=== PATIENT | female | born 1995 | race American Indian/Alaskan Native ===

== ENCOUNTER 2020-10-01 15:39 | Outpatient (CLI) | payer MEDICAID ==
[2020-10-01] MEDS ORDERED: LACTATED RINGERS 500 ML IV ONE (17:00)
[2020-10-01 17:10] LABS: Bacteria,Urine 1+ /HPF (Negative); Bilirubin,Urine NEG (Negative); Blood,Urine SM (Negative); Color,Urine Yellow (Yellow); Protein,Urine <15 mg/dL mg/dL (Negative); Urobilinogen,Urine < 2.0 mg/dL (<2.0)
[2020-10-01] MEDS ORDERED: LACTATED RINGERS 1,000 ML IV SCH (17:30)
[2020-10-01] MEDS ORDERED: ACETAMINOPHEN 500 MG TAB PO ONE (17:53)
[2020-10-01] MEDS ORDERED: LACTATED RINGERS 1,000 ML IV ONE (17:56)
[2020-10-01 18:45] VITALS: BP 132/81
--- NOTE | 2020-10-01 20:22 | Ultrasound Report ---
ULTRASOUND OBSTETRIC LIMITED INDICATION / CLINICAL INFORMATION: placental scan. Clinical Gestational Age (GA): 35.4 weeks.days COMPARISON: None available. FINDINGS: HEART RATE (beats per minute): 148 AMNIOTIC FLUID INDEX (cm) = not measured (normal = 7-24 cm) PRESENTATION: Cephalic. ADDITIONAL FINDINGS: Right lateral placenta without abruption IMPRESSION: 1. No placental abruption Signer Name: Agustín Delaney MD Signed: 10/01/2020 8:17 PM Workstation Name: [email or web address]
== END 2020-10-01 21:27 | disposition home or self-care (01) ==
LOC: TRG 15:39 → APU 15:40 → TRG 21:27
PROVIDERS: ATTEND Obstetrics & Gynecology
DX: O62.9 Abnormality of forces of labor, unspecified (principal); Z3A.35 35 weeks gestation of pregnancy
CPT/HCPCS: 76815; 81001; 87086; 96360; J7120

== ENCOUNTER 2020-10-08 11:22 | Outpatient (CLI) | payer MEDICAID ==
[2020-10-08 12:48] LABS: Hematocrit 34.8 % (30.3-42.9); Hemoglobin 11.7 gm/dl (10.1-14.3); Mean Corpuscular HGB Conc 34 % (30-34); Mean Corpuscular Volume 84 fl (79-97); Red Blood Count 4.13 M/mm3 (3.65-5.03); Red Cell Distribution Width 15.5 % (13.2-15.2)
[2020-10-08 13:11] LABS: Alanine Aminotransferase 13 units/L (7-56); Uric Acid 4.8 mg/dL (3.5-7.6)
[2020-10-08 13:37] LABS: Bacteria,Urine 1+ /HPF (Negative); Bilirubin,Urine NEG (Negative); Blood,Urine NEG (Negative); Color,Urine Yellow (Yellow); Mucus,Urine 1+ /HPF; Urobilinogen,Urine < 2.0 mg/dL (<2.0)
[2020-10-08 14:23] LABS: Platelet Count 212 K/mm3 (140-440)
[2020-10-08 14:37] VITALS: BP 128/72
== END 2020-10-08 15:00 | disposition home or self-care (01) ==
LOC: TRG 11:22 → APU 11:22 → TRG 15:00
PROVIDERS: ATTEND Obstetrics & Gynecology
DX: O13.3 Gestational [pregnancy-induced] hypertension without significant proteinuria, third trimester (principal); Z3A.36 36 weeks gestation of pregnancy
CPT/HCPCS: 36415; 59025; 81001; 82565; 83615; 84450; 84460; 84550; 85027; 87086

== ENCOUNTER 2020-10-15 17:27 | Inpatient (IN) | payer MEDICAID ==
[2020-10-15] MEDS ORDERED: LACTATED RINGERS 1,000 ML IV ONE (18:50)
[2020-10-15 19:37] LABS: Bacteria,Urine 1+ /HPF (Negative); Bilirubin,Urine NEG (Negative); Blood,Urine MOD (Negative); Color,Urine Yellow (Yellow); Mucus,Urine 2+ /HPF
[2020-10-15 19:38] LABS: RBC,Urine > 182.0 /HPF (0.0-6.0)
[2020-10-15 20:19] LABS: Hematocrit 35.8 % (30.3-42.9); Hemoglobin 11.8 gm/dl (10.1-14.3); Mean Corpuscular HGB Conc 33 % (30-34); Mean Corpuscular Volume 85 fl (79-97); Platelet Count 209 K/mm3 (140-440); Red Cell Distribution Width 15.5 % (13.2-15.2)
[2020-10-15 20:39] LABS: Alanine Aminotransferase 15 units/L (7-56); Uric Acid 6.2 mg/dL (3.5-7.6)
[2020-10-15] MEDS ORDERED: ACETAMINOPHEN 325 MG TAB PO ONE (21:16)
[2020-10-15 21:50] LABS: Bilirubin,Urine NEG (Negative); Blood,Urine LG (Negative); Color,Urine Yellow (Yellow); Mucus,Urine 3+ /HPF; Sperm,Urine FEW /HPF (NP)
[2020-10-15 21:51] LABS: RBC,Urine > 182.0 /HPF (0.0-6.0)
[2020-10-15] MEDS ORDERED: OXYTOCIN 10 UNIT/1 ML INJ IM PRN (22:57)
[2020-10-15] MEDS ORDERED: LIDOCAINE (2%) 20 MG/1 ML VIAL 20 ML MDV INFILTRATI ONE (22:57)
[2020-10-15] MEDS ORDERED: TERBUTALINE 1 MG/1 ML INJ SUB-Q PRN (22:57)
[2020-10-15] MEDS ORDERED: ePHEDrine SULFATE 50 MG/1 ML INJ IV PRN (22:57)
[2020-10-15] MEDS ORDERED: MINERAL OIL 30 ML ORAL LIQD PO PRN (22:57)
[2020-10-15] MEDS ORDERED: AMPICILLIN/NS 2 GM/100 ML 2 GM/100 ML BAG IV ONE (22:57)
[2020-10-15] MEDS ORDERED: OXYTOCIN DRIP 30 UNITS/500 ML BAG IV SCH ×2 (23:00)
--- NOTE | 2020-10-15 23:25 | Ultrasound Report ---
ULTRASOUND BIOPHYSICAL PROFILE INDICATION / CLINICAL INFORMATION: Evaluate well being and KAREN COMPARISON: Obstetrical ultrasound, 10/01/2020 FINDINGS: BREATHING MOVEMENT = 2 GROSS BODY MOVEMENT = 2 TONE = 2 QUALITATIVE AMNIOTIC FLUID VOLUME = 2 TOTAL BIOPHYSICAL SCORE = 88 AMNIOTIC FLUID INDEX (cm) = 9.5 PRESENTATION: Cephalic. HEART RATE (beats per minute): 126 IMPRESSION: 1. biophysical profile = 12/07 Signer Name: Uzma Negron MD Signed: 10/15/2020 11:21 PM Workstation Name: [id number]
--- NOTE | 2020-10-15 23:32 | History and Physical Report ---
History of Present Illness Date of examination: 10/15/20 Date of admission: 10/15/2020 Chief complaint: Elevated blood pressure at office History of present illness: 25 year old sent to L&D from office due to elevated blood pressure and headache. Patient reports active movement. Patient reports contractions. She denies LOF or VB. Patient has a 24 hour urine for total protein pending at office. Patient received care at [facility] office and records are available. significant for the following: obesity, elevated blood pressures, pica, UTI, vulvar warts. labs are as follows: B+, antibody screen negative, rubella immune, hepatitis B surface antigen negative, HIV negative, RPR nonreactive, varicella immune, hemoglobin electrophoresis negative, gonorrhea negative, chlamydia negative, trichomonas negative, 1 hour sugar test 103, GBS unknown. Past History Past Medical History: other (obesity) Past Surgical History: no surgical history [facility] History: abnormal PAP smear. denies: chlamydia, gonorrhea, hepatitis B, h epatitis C, herpes, HIV, syphilis, trichomonas Family/Genetic History: diabetes, hypertension Social history: lives with family, full code. denies: smoking, alcohol abuse, prescription drug abuse, IV drug use - Obstetrical History Expected Date of Delivery: 11/01/20 Actual Gestation: 37 Week(s) 4 Day(s) : 1 Para: 0 Hx # Term Pregnancies: 0 Number of Pregnancies: 0 Spontaneous Abortions: 0 Induced : 0 Number of Living Children: 0 Medications and Allergies Allergies Allergy/AdvReac Type Severity Reaction Status Date / Time No Known Allergies Allergy Verified 10/01/20 16:36 Active Meds: Active Medications Ephedrine Sulfate (Ephedrine Sulfate 50 Mg/1 Ml Inj) 10 mg IV Q2M PRN PRN Reason: Hypotension Oxytocin/Sodium Chloride (Pitocin/Ns 30 Unit/500ml) 30 units in 500 mls @ 2 mls/hr IV TITR ANA LUISA; Protocol Lactated Ringer's (Lactated Ringers) 1,000 mls @ 125 mls/hr IV DIRECT ANA LUISA Oxytocin/Sodium Chloride (Pitocin/Ns 30 Unit/500ml) 30 units in 500 mls @ 40 mls/hr IV TITR ANA LUISA; Protocol Ampicillin Sodium (Ampicillin/Ns 2 Gm/100 Ml) 2 gm in 100 mls @ 100 mls/hr IV ONCE ONE; Protocol Stop: 10/15/20 23:56 Ampicillin Sodium (Ampicillin/Ns 1 Gm/50 Ml) 1 gm in 50 mls @ 100 mls/hr IV Q4H ANA LUISA; Protocol Lidocaine (Lidocaine (2%) 20 Mg/1 Ml Vial 20 Ml Mdv) 20 ml INFILTRATI ONCE ONE Stop: 10/15/20 22:58 Mineral Oil (Mineral Oil 30 Ml Oral Liqd) 30 ml PO QHS PRN PRN Reason: Constipation Oxytocin (Oxytocin 10 Unit/1 Ml Inj) 10 unit IM ONCE PRN PRN Reason: Uterine Bleeding Terbutaline Sulfate (Terbutaline 1 Mg/1 Ml Inj) 0.25 mg SUB-Q ONCE PRN PRN Reason: Hyperstimulation/Hypertonicity Review of Systems All systems: negative (contractions, headache) - Vital Signs Vital signs: Vital Signs Pulse BP 88 125/83 10/15/20 18:47 10/15/20 18:47 Temp Pulse Resp BP Pulse Ox 98.6 F 101 H 20 191/92 92 10/15/20 18:51 10/15/20 23:06 10/15/20 18:51 10/15/20 22:50 10/15/20 23:06 - Physical Exam Abdomen: Positive: normal appearance, soft. Negative: distention, tenderness, guarding, rigidity Genitourinary (Female): Positive: normal external genitalia, normal perenium. Negative: perineal/vulvar lesions Vagina: Positive: normal moisture Cervix: Negative: lesion Uterus: Positive: enlarged. Negative: tender Anus/Rectum: Positive: normal perianal skin Extremities: Negative: normal, tenderness, edema (hand edema only) - Obstetrical FHR: category 1 Uterine Contraction Monitor Mode: External Cervical Dilatation: 0.5 Cervical Effacement Percentage: 50 station: -2 Uterine Contraction Pattern: Irregular Uterine Tone Measurement Phase: Resting Uterine Contraction Intensity: Moderate Results Result Diagrams: 10/15/20 20:05 10/15/20 20:05 Abnormal lab results 10/15/20 10/15/20 10/15/20 Range/Units 19:05 20:05 20:05 RDW 15.5 H (13.2-15.2) % Lactate Dehydrogenase 184 H (91-180) units/L Urine WBC (Auto) 16.0 H (0.0-6.0) /HPF 10/15/20 Range/Units 21:40 RDW (13.2-15.2) % Lactate Dehydrogenase (91-180) units/L Urine WBC (Auto) 14.0 H (0.0-6.0) /HPF All other labs normal. Assessment and Plan A: at 37 weeks, 4 days gestation. Preeclampsia. GBS unknown. Early labor. P: Admit. Continuous EFM. GBS prophylaxis in active labor. Consulted with Dr. Raman re: this patient. Dr. Raman agrees to admit and induce labor due to preeclampsia.
[2020-10-16 00:16] LABS: Creatinine,Urine 321.4 mg/dL (0.1-20.0); Protein/Creatinine Ratio,Urine 0.23
[2020-10-16] MEDS: LACTATED RINGERS 1,000 ML IV SCH (01:55)
[2020-10-16] MEDS ORDERED: AMPICILLIN/NS 1 GM/50 ML 1 GM/50 ML BAG IV SCH (04:00)
[2020-10-16] MEDS: ACETAMINOPHEN 500 MG TAB PO PRN ×2 (06:17→15:19)
[2020-10-16] MEDS ORDERED: MAGNESIUM SULFATE 4 GM/100 ML BAG IV ONE (08:30)
--- NOTE | 2020-10-16 08:42 | Event Note ---
Date: 10/16/20 mild elevated BP's no BP's in severe range no neurologic symptoms PIH labs stable 24 hour urine pending plan for d/c oxytocin and complete 24 hour urine monitoring to establish diagnosis prior to active IOL at 37 weeks. Luis Wang MD
[2020-10-16] MEDS ORDERED: fentaNYL 100 MCG/2 ML INJ IV NR (08:48)
[2020-10-16] MEDS ORDERED: MAGNESIUM SULFATE 40GM/1000ML 40 GM/1,000 ML BAG IV SCH (09:00)
--- NOTE | 2020-10-17 02:19 | Event Note ---
Date: 10/17/20 Pt sleeping. Earlier she denied c/o of modi, visual problems, or epigastric pain. Laible b/ps. PIH labs wnl with 25 hr urine pro @ 75. FHT 142 with mod tushar Pos acels neg decels. Pitocin infusing @ 2mu. Occ mild uc noted. Will continue monitoring.
[2020-10-17] MEDS: LACTATED RINGERS 1,000 ML IV SCH ×2 (03:04→11:07)
[2020-10-17] MEDS ORDERED: ALBUTEROL 2.5 MG/3 ML NEBU IH PRN (10:14)
[2020-10-17] MEDS ORDERED: ONDANSETRON 4 MG/2 ML INJ IV PRN (10:57)
--- NOTE | 2020-10-17 11:22 | Event Note ---
Date: 10/17/20 Assumed care of patient at 10:30 AM. SVE /3. Consulted with Dr. Wang re: this patient and decision made to order cytotec to help ripen cervix. Discussed plan of care with patient and patient is in agreement with this plan of care. Discussed this plan with patient's nurse. Pitocin to be discontinued.
[2020-10-17] MEDS: fentaNYL 100 MCG/2 ML INJ IV PRN ×2 (11:41→18:37)
[2020-10-17] MEDS ORDERED: miSOPROStol 25 MCG TAB VG SCH (12:00)
[2020-10-17] MEDS ORDERED: MAGNESIUM SULFATE 4 GM/100 ML BAG IV ONE (16:35)
[2020-10-17] MEDS ORDERED: hydrALAZINE 20 MG/1 ML INJ IV PRN (16:37)
--- NOTE | 2020-10-17 16:41 | Event Note ---
Date: 10/17/20 Magnesium sulfate ordered; discussed POC with patient and patient's nurse.
[2020-10-17] MEDS ORDERED: MAGNESIUM SULFATE 40GM/1000ML 40 GM/1,000 ML BAG IV SCH (17:00)
[2020-10-17] MEDS ORDERED: NALOXONE 2 MG/2 ML INJ IV PRN (20:45)
[2020-10-17] MEDS ORDERED: ePHEDrine SULFATE 50 MG/1 ML INJ IV PRN (20:45)
--- NOTE | 2020-10-17 21:27 | Anesthesia Consultation ---
Anesthesia Consult and Med Hx Date of service: 10/17/20 - Airway Anesthetic Teeth Evaluation: Poor ROM Head & Neck: Adequate Mental/Hyoid Distance: Adequate Mallampati Class: Class III Intubation Access Assessment: Possibly Difficult - Pulmonary Exam CTA: Yes - Cardiac Exam Cardiac Exam: RRR - Pre-Operative Health Status ASA Pre-Surgery Classification: ASA3 Proposed Anesthetic Plan: Epidural - Pulmonary Hx Smoking: No Hx Asthma: No Hx Respiratory Symptoms: No SOB: No COPD: No Home Oxygen Therapy: No Hx Pneumonia: No Hx Sleep Apnea: No - Cardiovascular System Hx Hypertension: No Hx Coronary Artery Disease: No Hx Heart Attack/AMI: No Hx Angina: No Hx Percutaneous Transluminal Coronary Angioplasty (PTCA): No Hx Cardia Arrhythmia: No Hx Pacemaker: No Hx Internal Defibrillator: No Hx Valvular Heart Disease: No Hx Heart Murmur: No - Central Nervous System Hx Neuromuscular Disorder: No Hx Seizures: No CVA: No Hx Back Pain: No Hx Psychiatric Problems: No - Gastrointestinal Hx Ulcer: No Hx Gastroesophageal Reflux Disease: Yes - Endocrine 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
--- NOTE | 2020-10-17 21:34 | Progress Note ---
Labor Epidural - Labor Epidural Start Time: 21:00 Stop Time: 21:15 Performed by:: BLAISE MANCERA Procedure: Patient is requesting a laboring epidural for laboring pain. Patient IDed, H&P reviewed, all questions and concerns were answered, and consent was signed. Timeout was performed at bedside. Patient in sitting position. Sterile prep and drape was performed. [3] ml of 1% lidocaine skin wheal at L[3]- L [4]. 18- gauge Tuohy epidural needle was advanced to loss of resistance with air technique to 7cm. Negative CSF negative blood via Tuohy needle. #27g Spinal needle clear, free flowing CSF, Pecedex 10 mcg. Epidural catheter advanced to [10] centimeters. [negative] Aspiration [negative] test dose. Sterile dressing applied. Patient tolerated procedure.
[2020-10-17] MEDS: fentaNYL-BUPIV 2 MCG/ML-0.125% 200 MCG/100 ML BAG EPIDURAL SCH (22:11)
[2020-10-18] MEDS: fentaNYL-BUPIV 2 MCG/ML-0.125% 200 MCG/100 ML BAG EPIDURAL SCH (06:14)
[2020-10-18] MEDS ORDERED: FAMOTIDINE 20 MG/2 ML INJ IV SCH (08:00)
[2020-10-18] MEDS ORDERED: BICITRA ORAL LIQD 30ML PO SCH (08:00)
[2020-10-18] MEDS ORDERED: LACTATED RINGERS 1,000 ML IV SCH (08:00)
[2020-10-18] MEDS ORDERED: METOCLOPRAMIDE 10 MG/2 ML INJ IV SCH (08:00)
[2020-10-18] MEDS ORDERED: ceFAZolin/Water 2 GM/20 ML 2 GM/20 ML SYRINGE IV NR (08:00)
--- NOTE | 2020-10-18 08:00 | Progress Note ---
Subjective - Subjective Date of service: 10/18/20 Interval history: no cervical change +ve caput station-3 plan for operative delivery Informed consent Catefory 1 tracing Luis Wang MD Objective - Vital Signs Vital Signs: Vital Signs - 12hr 10/17/20 10/17/20 10/17/20 20:00 20:14 20:15 Temperature 98.7 F Pulse Rate 113 H 103 H Respiratory 20 20 Rate Blood Pressure 158/85 173/82 O2 Sat by Pulse Oximetry 10/17/20 10/17/20 10/17/20 20:31 20:34 20:50 Temperature Pulse Rate 111 H 103 H 129 H Respiratory Rate Blood Pressure 184/119 155/91 O2 Sat by Pulse 100 Oximetry 10/17/20 10/17/20 10/17/20 20:55 20:56 21:00 Temperature Pulse Rate 108 H 113 H 116 H Respiratory 20 Rate Blood Pressure 146/80 O2 Sat by Pulse 99 98 Oximetry 10/17/20 10/17/20 10/17/20 21:05 21:09 21:10 Temperature Pulse Rate 113 H 101 H 111 H Respiratory Rate Blood Pressure 150/87 O2 Sat by Pulse 97 98 Oximetry 10/17/20 10/17/20 10/17/20 21:15 21:16 21:19 Temperature Pulse Rate 90 115 H 118 H Respiratory Rate Blood Pressure 155/84 183/115 O2 Sat by Pulse 97 Oximetry 10/17/20 10/17/20 10/17/20 21:20 21:21 21:24 Temperature Pulse Rate 104 H 100 H 99 H Respiratory Rate Blood Pressure 157/88 155/91 138/88 O2 Sat by Pulse 97 Oximetry 10/17/20 10/17/20 10/17/20 21:26 21:28 21:31 Temperature Pulse Rate 100 H 90 94 H Respiratory Rate Blood Pressure 128/63 130/68 O2 Sat by Pulse 97 97 Oximetry 10/17/20 10/17/20 10/17/20 21:33 21:36 21:39 Temperature Pulse Rate 83 82 85 Respiratory Rate Blood Pressure 123/68 125/67 124/71 O2 Sat by Pulse 99 Oximetry 10/17/20 10/17/20 10/17/20 21:41 21:42 21:45 Temperature Pulse Rate 87 90 82 Respiratory Rate Blood Pressure 129/68 132/65 O2 Sat by Pulse 99 Oximetry 10/17/20 10/17/20 10/17/20 21:46 21:48 21:51 Temperature Pulse Rate 79 91 H 96 H Respiratory Rate Blood Pressure 132/70 132/68 O2 Sat by Pulse 98 96 Oximetry 10/17/20 10/17/20 10/17/20 21:54 21:56 21:57 Temperature Pulse Rate 86 82 93 H Respiratory Rate Blood Pressure 122/64 119/61 O2 Sat by Pulse 97 Oximetry 10/17/20 10/17/20 10/17/20 22:00 22:01 22:03 Temperature Pulse Rate 91 H 93 H 85 Respiratory 20 Rate Blood Pressure 126/68 128/72 O2 Sat by Pulse 99 Oximetry 10/17/20 10/17/20 10/17/20 22:06 22:09 22:11 Temperature Pulse Rate 91 H 83 94 H Respiratory Rate Blood Pressure 127/62 118/62 O2 Sat by Pulse 98 98 Oximetry 10/17/20 10/17/20 10/17/20 22:12 22:15 22:16 Temperature Pulse Rate 85 92 H 89 Respiratory Rate Blood Pressure 126/72 119/62 O2 Sat by Pulse 98 Oximetry 10/17/20 10/17/20 10/17/20 22:18 22:21 22:24 Temperature Pulse Rate 85 85 85 Respiratory Rate Blood Pressure 120/66 122/70 118/69 O2 Sat by Pulse 99 Oximetry 10/17/20 10/17/20 10/17/20 22:26 22:27 22:30 Temperature Pulse Rate 86 85 81 Respiratory Rate Blood Pressure 117/63 116/67 O2 Sat by Pulse 98 Oximetry 10/17/20 10/17/20 10/17/20 22:31 22:33 22:36 Temperature Pulse Rate 84 85 85 Respiratory Rate Blood Pressure 114/61 125/64 O2 Sat by Pulse 97 97 Oximetry 10/17/20 10/17/20 10/17/20 22:39 22:41 22:42 Temperature Pulse Rate 86 83 90 Respiratory Rate Blood Pressure 116/58 104/56 O2 Sat by Pulse 99 Oximetry 10/17/20 10/17/20 10/17/20 22:46 22:47 22:51 Temperature Pulse Rate 81 83 85 Respiratory Rate Blood Pressure O2 Sat by Pulse 96 94 95 Oximetry 10/17/20 10/17/20 10/17/20 22:56 23:00 23:01 Temperature Pulse Rate 82 81 Respiratory 20 Rate Blood Pressure O2 Sat by Pulse 96 97 Oximetry 10/17/20 10/17/20 10/17/20 23:03 23:06 23:11 Temperature Pulse Rate 78 77 82 Respiratory Rate Blood Pressure O2 Sat by Pulse 94 97 96 Oximetry 10/17/20 10/17/20 10/17/20 23:14 23:15 23:16 Temperature Pulse Rate 76 82 81 Respiratory Rate Blood Pressure 103/58 O2 Sat by Pulse 94 94 Oximetry 10/17/20 10/17/20 10/17/20 23:21 23:24 23:26 Temperature Pulse Rate 101 H 81 77 Respiratory Rate Blood Pressure O2 Sat by Pulse 98 94 96 Oximetry 10/17/20 10/17/20 10/17/20 23:31 23:35 23:36 Temperature Pulse Rate 77 80 74 Respiratory Rate Blood Pressure O2 Sat by Pulse 96 94 95 Oximetry 10/17/20 10/17/20 10/17/20 23:41 23:46 23:51 Temperature Pulse Rate 79 77 77 Respiratory Rate Blood Pressure 104/53 O2 Sat by Pulse 95 93 96 Oximetry 10/17/20 10/17/20 10/17/20 23:53 23:56 23:58 Temperature Pulse Rate 86 80 77 Respiratory Rate Blood Pressure O2 Sat by Pulse 93 96 94 Oximetry 10/18/20 10/18/20 10/18/20 00:00 00:01 00:06 Temperature Pulse Rate 73 73 Respiratory 20 Rate Blood Pressure O2 Sat by Pulse 97 97 Oximetry 10/18/20 10/18/20 10/18/20 00:09 00:11 00:14 Temperature Pulse Rate 78 75 85 Respiratory Rate Blood Pressure 117/59 O2 Sat by Pulse 94 95 Oximetry 10/18/20 10/18/20 10/18/20 00:16 00:21 00:26 Temperature Pulse Rate 83 77 80 Respiratory Rate Blood Pressure O2 Sat by Pulse 99 97 99 Oximetry 10/18/20 10/18/20 10/18/20 00:31 00:36 00:41 Temperature Pulse Rate 73 75 79 Respiratory Rate Blood Pressure O2 Sat by Pulse 98 97 100 Oximetry 10/18/20 10/18/20 10/18/20 00:45 00:46 00:51 Temperature Pulse Rate 85 80 79 Respiratory Rate Blood Pressure 112/65 O2 Sat by Pulse 98 99 Oximetry 10/18/20 10/18/20 10/18/20 00:56 00:59 01:00 Temperature Pulse Rate 83 77 Respiratory 20 Rate Blood Pressure O2 Sat by Pulse 96 93 Oximetry 10/18/20 10/18/20 10/18/20 01:01 01:06 01:11 Temperature Pulse Rate 96 H 74 80 Respiratory Rate Blood Pressure O2 Sat by Pulse 94 97 95 Oximetry 10/18/20 10/18/20 10/18/20 01:14 01:16 01:17 Temperature Pulse Rate 93 H 75 75 Respiratory Rate Blood Pressure 113/59 O2 Sat by Pulse 88 96 Oximetry 10/18/20 10/18/20 10/18/20 01:22 01:27 01:31 Temperature Pulse Rate 78 80 82 Respiratory Rate Blood Pressure O2 Sat by Pulse 96 98 94 Oximetry 10/18/20 10/18/20 10/18/20 01:32 01:37 01:38 Temperature Pulse Rate 79 92 H 93 H Respiratory Rate Blood Pressure O2 Sat by Pulse 97 98 91 Oximetry 10/18/20 10/18/20 10/18/20 01:42 01:45 01:47 Temperature Pulse Rate 100 H 97 H 94 H Respiratory Rate Blood Pressure 125/60 O2 Sat by Pulse 99 100 Oximetry 10/18/20 10/18/20 10/18/20 01:52 01:57 02:00 Temperature Pulse Rate 113 H 96 H Respiratory 20 Rate Blood Pressure O2 Sat by Pulse 97 97 Oximetry 10/18/20 10/18/20 10/18/20 02:02 02:07 02:12 Temperature Pulse Rate 90 98 H 98 H Respiratory Rate Blood Pressure O2 Sat by Pulse 98 96 97 Oximetry 10/18/20 10/18/20 10/18/20 02:16 02:17 02:22 Temperature Pulse Rate 87 85 82 Respiratory Rate Blood Pressure 118/60 O2 Sat by Pulse 97 97 Oximetry 10/18/20 10/18/20 10/18/20 02:27 02:32 02:37 Temperature Pulse Rate 80 81 78 Respiratory Rate Blood Pressure O2 Sat by Pulse 98 97 97 Oximetry 10/18/20 10/18/20 10/18/20 02:42 02:44 02:45 Temperature Pulse Rate 83 107 H 89 Respiratory Rate Blood Pressure 126/60 O2 Sat by Pulse 97 92 Oximetry 0610/18/20 10/18/20 02:47 02:52 02:57 Temperature Pulse Rate 82 84 85 Respiratory Rate Blood Pressure O2 Sat by Pulse 97 96 95 Oximetry 10/18/20 10/18/20 10/18/20 03:00 03:02 03:06 Temperature Pulse Rate 86 99 H Respiratory 19 Rate Blood Pressure O2 Sat by Pulse 96 94 Oximetry 10/18/20 10/18/20 10/18/20 03:07 03:12 03:15 Temperature Pulse Rate 100 H 94 H 91 H Respiratory Rate Blood Pressure O2 Sat by Pulse 97 98 93 Oximetry 10/18/20 10/18/20 10/18/20 03:16 03:17 03:22 Temperature Pulse Rate 88 91 H 96 H Respiratory Rate Blood Pressure 128/61 O2 Sat by Pulse 97 98 Oximetry 10/18/20 10/18/20 10/18/20 03:27 03:32 03:37 Temperature Pulse Rate 91 H 98 H 87 Respiratory Rate Blood Pressure O2 Sat by Pulse 95 95 95 Oximetry 10/18/20 10/18/20 10/18/20 03:42 03:45 03:47 Temperature Pulse Rate 95 H 85 83 Respiratory Rate Blood Pressure 135/62 O2 Sat by Pulse 98 94 96 Oximetry 10/18/20 10/18/20 10/18/20 03:52 03:57 03:58 Temperature Pulse Rate 84 105 H 105 H Respiratory Rate Blood Pressure O2 Sat by Pulse 97 98 81 L Oximetry 10/18/20 10/18/20 10/18/20 04:02 04:07 04:12 Temperature Pulse Rate 103 H 103 H 92 H Respiratory Rate Blood Pressure O2 Sat by Pulse 97 97 96 Oximetry 10/18/20 10/18/20 10/18/20 04:15 04:17 04:20 Temperature Pulse Rate 93 H 90 90 Respiratory Rate Blood Pressure 126/62 O2 Sat by Pulse 94 98 93 Oximetry 10/18/20 10/18/20 10/18/20 04:22 04:27 04:32 Temperature Pulse Rate 91 H 90 104 H Respiratory Rate Blood Pressure O2 Sat by Pulse 97 97 98 Oximetry 10/18/20 10/18/20 10/18/20 04:36 04:37 04:42 Temperature Pulse Rate 86 87 86 Respiratory Rate Blood Pressure O2 Sat by Pulse 94 95 97 Oximetry 10/18/20 10/18/2010/18/21 04:45 04:47 04:51 Temperature Pulse Rate 87 91 H 107 H Respiratory Rate Blood Pressure 126/58 O2 Sat by Pulse 94 96 94 Oximetry 10/18/20 10/18/20 10/18/20 04:52 04:57 05:02 Temperature Pulse Rate 90 85 98 H Respiratory Rate Blood Pressure O2 Sat by Pulse 96 94 99 Oximetry 10/18/20 10/18/20 10/18/20 05:07 05:08 05:12 Temperature Pulse Rate 89 87 89 Respiratory Rate Blood Pressure O2 Sat by Pulse 96 94 96 Oximetry 10/18/20 10/18/20 10/18/20 05:14 05:17 05:19 Temperature Pulse Rate 90 95 H 91 H Respiratory Rate Blood Pressure 129/68 O2 Sat by Pulse 92 98 92 Oximetry 10/18/20 10/18/20 10/18/20 05:22 05:27 05:32 Temperature Pulse Rate 92 H 92 H 94 H Respiratory Rate Blood Pressure O2 Sat by Pulse 96 97 95 Oximetry 10/18/20 10/18/20 10/18/20 05:37 05:42 05:45 Temperature Pulse Rate 95 H 94 H 90 Respiratory Rate Blood Pressure 131/62 O2 Sat by Pulse 96 96 Oximetry 10/18/20 10/18/20 10/18/20 05:47 05:52 05:53 Temperature Pulse Rate 92 H 97 H 107 H Respiratory Rate Blood Pressure O2 Sat by Pulse 97 96 94 Oximetry 10/18/20 10/18/20 10/18/20 05:57 06:01 06:02 Temperature Pulse Rate 96 H 92 H 93 H Respiratory Rate Blood Pressure O2 Sat by Pulse 98 93 97 Oximetry 10/18/20 10/18/20 10/18/20 06:07 06:12 06:17 Temperature Pulse Rate 101 H 101 H 109 H Respiratory Rate Blood Pressure O2 Sat by Pulse 99 98 98 Oximetry 10/18/20 10/18/20 10/18/20 06:22 06:27 06:32 Temperature Pulse Rate 109 H 97 H 105 H Respiratory Rate Blood Pressure O2 Sat by Pulse 98 96 97 Oximetry 10/18/20 10/18/20 10/18/20 06:37 06:42 06:44 Temperature Pulse Rate 95 H 102 H 96 H Respiratory Rate Blood Pressure 130/66 O2 Sat by Pulse 96 95 Oximetry 10/18/20 10/18/20 10/18/20 06:47 06:52 06:55 Temperature Pulse Rate 96 H 92 H 103 H Respiratory Rate Blood Pressure O2 Sat by Pulse 97 97 94 Oximetry 10/18/20 10/18/20 10/18/20 06:57 07:02 07:07 Temperature Pulse Rate 92 H 94 H 106 H Respiratory Rate Blood Pressure O2 Sat by Pulse 95 97 99 Oximetry 10/18/20 10/18/20 10/18/20 07:12 07:16 07:17 Temperature Pulse Rate 107 H 97 H 97 H Respiratory Rate Blood Pressure 120/65 O2 Sat by Pulse 98 97 Oximetry 10/18/20 10/18/20 10/18/20 07:20 07:22 07:27 Temperature 99.1 F Pulse Rate 95 H 100 H Respiratory Rate Blood Pressure O2 Sat by Pulse 97 98 Oximetry 10/18/20 10/18/20 10/18/20 07:32 07:37 07:42 Temperature Pulse Rate 93 H 119 H 136 H Respiratory Rate Blood Pressure O2 Sat by Pulse 95 99 98 Oximetry 10/18/20 10/18/20 10/18/20 07:44 07:47 07:52 Temperature Pulse Rate 122 H 119 H 107 H Respiratory Rate Blood Pressure 148/81 O2 Sat by Pulse 98 98 Oximetry 10/18/20 07:57 Temperature Pulse Rate 113 H Respiratory Rate Blood Pressure O2 Sat by Pulse 98 Oximetry - Labs Labs: Abnormal Labs 10/15/20 10/15/20 10/15/20 19:05 20:05 20:05 RDW 15.5 H Magnesium Lactate Dehydrogenase 184 H Urine WBC (Auto) 16.0 H Urine Creatinine Ur Total Protein 24 Hr Urine Total Protein 10/15/20 10/15/20 10/16/20 21:40 21:40 00:23 RDW Magnesium Lactate Dehydrogenase Urine WBC (Auto) 14.0 H Urine Creatinine 321.4 H Ur Total Protein 24 Hr 567.00 H Urine Total Protein 75 H 63 H 10/17/20 10/18/20 23:20 05:22 RDW Magnesium 4.50 H 6.40 H Lactate Dehydrogenase Urine WBC (Auto) Urine Creatinine Ur Total Protein 24 Hr Urine Total Protein Laboratory Results - last 24 hr 10/17/20 10/18/20 23:20 05:22 Magnesium 4.50 H 6.40 H
[2020-10-18] MEDS ORDERED: METOCLOPRAMIDE 10 MG/2 ML INJ ONE (08:10)
[2020-10-18] MEDS ORDERED: BICITRA ORAL LIQD 30ML ONE (08:10)
--- NOTE | 2020-10-18 13:15 | Progress Note ---
Subjective - Subjective Date of service: 10/18/20 Interval history: c/setion delayed for emergency on cervical exam prior transporting pt to OR cervix 4cm/90%/-1 plan for oxytocin pre protocol and epidural bolus operative delivery on hold Catefory 1 tracing Maternal/ status reassuring Luis Wang MD Objective - Vital Signs Vital Signs: Vital Signs - 12hr 10/18/20 10/18/20 10/18/20 01:14 01:16 01:17 Temperature Pulse Rate 93 H 75 75 Respiratory Rate Blood Pressure 113/59 O2 Sat by Pulse 88 96 Oximetry 10/18/20 10/18/20 10/18/20 01:22 01:27 01:31 Temperature Pulse Rate 78 80 82 Respiratory Rate Blood Pressure O2 Sat by Pulse 96 98 94 Oximetry 10/18/20 10/18/20 10/18/20 01:32 01:37 01:38 Temperature Pulse Rate 79 92 H 93 H Respiratory Rate Blood Pressure O2 Sat by Pulse 97 98 91 Oximetry 10/18/20 10/18/20 10/18/20 01:42 01:45 01:47 Temperature Pulse Rate 100 H 97 H 94 H Respiratory Rate Blood Pressure 125/60 O2 Sat by Pulse 99 100 Oximetry 10/18/20 10/18/20 10/18/20 01:52 01:57 02:00 Temperature Pulse Rate 113 H 96 H Respiratory 20 Rate Blood Pressure O2 Sat by Pulse 97 97 Oximetry 10/18/20 10/18/20 10/18/20 02:02 02:07 02:12 Temperature Pulse Rate 90 98 H 98 H Respiratory Rate Blood Pressure O2 Sat by Pulse 98 96 97 Oximetry 10/18/20 10/18/20 10/18/20 02:16 02:17 02:22 Temperature Pulse Rate 87 85 82 Respiratory Rate Blood Pressure 118/60 O2 Sat by Pulse 97 97 Oximetry 10/18/20 10/18/20 10/18/20 02:27 02:32 02:37 Temperature Pulse Rate 80 81 78 Respiratory Rate Blood Pressure O2 Sat by Pulse 98 97 97 Oximetry 10/18/20 10/18/20 10/18/20 02:42 02:44 02:45 Temperature Pulse Rate 83 107 H 89 Respiratory Rate Blood Pressure 126/60 O2 Sat by Pulse 97 92 Oximetry 10/18/20 10/18/20 10/18/20 02:47 02:52 02:57 Temperature Pulse Rate 82 84 85 Respiratory Rate Blood Pressure O2 Sat by Pulse 97 96 95 Oximetry 10/18/20 10/18/20 10/18/20 03:00 03:02 03:06 Temperature Pulse Rate 86 99 H Respiratory 19 Rate Blood Pressure O2 Sat by Pulse 96 94 Oximetry 10/18/20 10/18/20 10/18/20 03:07 03:12 03:15 Temperature Pulse Rate 100 H 94 H 91 H Respiratory Rate Blood Pressure O2 Sat by Pulse 97 98 93 Oximetry 10/18/20 10/18/20 10/18/20 03:16 03:17 03:22 Temperature Pulse Rate 88 91 H 96 H Respiratory Rate Blood Pressure 128/61 O2 Sat by Pulse 97 98 Oximetry 10/18/20 10/18/20 10/18/20 03:27 03:32 03:37 Temperature Pulse Rate 91 H 98 H 87 Respiratory Rate Blood Pressure O2 Sat by Pulse 95 95 95 Oximetry 10/18/20 10/18/20 10/18/20 03:42 03:45 03:47 Temperature Pulse Rate 95 H 85 83 Respiratory Rate Blood Pressure 135/62 O2 Sat by Pulse 98 94 96 Oximetry 10/18/20 10/18/20 10/18/20 03:52 03:57 03:58 Temperature Pulse Rate 84 105 H 105 H Respiratory Rate Blood Pressure O2 Sat by Pulse 97 98 81 L Oximetry 10/18/20 10/18/20 10/18/20 04:02 04:07 04:12 Temperature Pulse Rate 103 H 103 H 92 H Respiratory Rate Blood Pressure O2 Sat by Pulse 97 97 96 Oximetry 10/18/20 10/18/20 10/18/20 04:15 04:17 04:20 Temperature Pulse Rate 93 H 90 90 Respiratory Rate Blood Pressure 126/62 O2 Sat by Pulse 94 98 93 Oximetry 10/18/20 10/18/20 10/18/20 04:22 04:27 04:32 Temperature Pulse Rate 91 H 90 104 H Respiratory Rate Blood Pressure O2 Sat by Pulse 97 97 98 Oximetry 10/18/20 10/18/20 10/18/20 04:36 04:37 04:42 Temperature Pulse Rate 86 87 86 Respiratory Rate Blood Pressure O2 Sat by Pulse 94 95 97 Oximetry 10/18/20 10/18/20 10/18/20 04:45 04:47 04:51 Temperature Pulse Rate 87 91 H 107 H Respiratory Rate Blood Pressure 126/58 O2 Sat by Pulse 94 96 94 Oximetry 10/18/20 10/18/20 10/18/20 04:52 04:57 05:02 Temperature Pulse Rate 90 85 98 H Respiratory Rate Blood Pressure O2 Sat by Pulse 96 94 99 Oximetry 10/18/20 10/18/20 10/18/20 05:07 05:08 05:12 Temperature Pulse Rate 89 87 89 Respiratory Rate Blood Pressure O2 Sat by Pulse 96 94 96 Oximetry 10/18/20 10/18/20 10/18/20 05:14 05:17 05:19 Temperature Pulse Rate 90 95 H 91 H Respiratory Rate Blood Pressure 129/68 O2 Sat by Pulse 92 98 92 Oximetry 10/18/20 10/18/20 10/18/20 05:22 05:27 05:32 Temperature Pulse Rate 92 H 92 H 94 H Respiratory Rate Blood Pressure O2 Sat by Pulse 96 97 95 Oximetry 10/18/20 10/18/20 10/18/20 05:37 05:42 05:45 Temperature Pulse Rate 95 H 94 H 90 Respiratory Rate Blood Pressure 131/62 O2 Sat by Pulse 96 96 Oximetry 10/18/20 10/18/20 10/18/20 05:47 05:52 05:53 Temperature Pulse Rate 92 H 97 H 107 H Respiratory Rate Blood Pressure O2 Sat by Pulse 97 96 94 Oximetry 10/18/20 10/18/20 10/18/20 05:57 06:01 06:02 Temperature Pulse Rate 96 H 92 H 93 H Respiratory Rate Blood Pressure O2 Sat by Pulse 98 93 97 Oximetry 10/18/20 10/18/20 10/18/20 06:07 06:12 06:17 Temperature Pulse Rate 101 H 101 H 109 H Respiratory Rate Blood Pressure O2 Sat by Pulse 99 98 98 Oximetry 10/18/20 10/18/20 10/18/20 06:22 06:27 06:32 Temperature Pulse Rate 109 H 97 H 105 H Respiratory Rate Blood Pressure O2 Sat by Pulse 98 96 97 Oximetry 10/18/20 10/18/20 10/18/20 06:37 06:42 06:44 Temperature Pulse Rate 95 H 102 H 96 H Respiratory Rate Blood Pressure 130/66 O2 Sat by Pulse 96 95 Oximetry 10/18/20 10/18/20 10/18/20 06:47 06:52 06:55 Temperature Pulse Rate 96 H 92 H 103 H Respiratory Rate Blood Pressure O2 Sat by Pulse 97 97 94 Oximetry 10/18/20 10/18/20 10/18/20 06:57 07:02 07:07 Temperature Pulse Rate 92 H 94 H 106 H Respiratory Rate Blood Pressure O2 Sat by Pulse 95 97 99 Oximetry 10/18/20 10/18/20 10/18/20 07:12 07:16 07:17 Temperature Pulse Rate 107 H 97 H 97 H Respiratory Rate Blood Pressure 120/65 O2 Sat by Pulse 98 97 Oximetry 10/18/20 10/18/20 10/18/20 07:20 07:22 07:27 Temperature 99.1 F Pulse Rate 95 H 100 H Respiratory Rate Blood Pressure O2 Sat by Pulse 97 98 Oximetry 10/18/20 10/18/20 10/18/20 07:32 07:37 07:42 Temperature Pulse Rate 93 H 119 H 136 H Respiratory Rate Blood Pressure O2 Sat by Pulse 95 99 98 Oximetry 10/18/20 10/18/20 10/18/20 07:44 07:47 07:52 Temperature Pulse Rate 122 H 119 H 107 H Respiratory Rate Blood Pressure 148/81 O2 Sat by Pulse 98 98 Oximetry 10/18/20 10/18/20 10/18/20 07:57 08:02 08:07 Temperature Pulse Rate 113 H 94 H 95 H Respiratory Rate Blood Pressure O2 Sat by Pulse 98 98 98 Oximetry 10/18/20 10/18/20 10/18/20 08:12 08:17 08:22 Temperature Pulse Rate 92 H 116 H 111 H Respiratory Rate Blood Pressure O2 Sat by Pulse 96 99 98 Oximetry 10/18/20 10/18/20 10/18/20 08:27 08:28 08:32 Temperature Pulse Rate 101 H 97 H 117 H Respiratory Rate Blood Pressure 142/84 O2 Sat by Pulse 98 98 Oximetry 10/18/20 10/18/20 10/18/20 08:37 08:42 08:45 Temperature Pulse Rate 101 H 100 H 98 H Respiratory Rate Blood Pressure 142/70 O2 Sat by Pulse 97 98 Oximetry 10/18/20 10/18/20 10/18/20 08:47 08:52 08:57 Temperature Pulse Rate 101 H 96 H 100 H Respiratory Rate Blood Pressure O2 Sat by Pulse 99 98 98 Oximetry 10/18/20 10/18/20 10/18/20 09:02 09:07 09:12 Temperature Pulse Rate 109 H 105 H 101 H Respiratory Rate Blood Pressure O2 Sat by Pulse 99 97 97 Oximetry 10/18/20 10/18/20 10/18/20 09:15 09:17 09:22 Temperature Pulse Rate 105 H 96 H 95 H Respiratory Rate Blood Pressure 145/70 O2 Sat by Pulse 98 99 Oximetry 10/18/20 10/18/20 10/18/20 09:27 09:32 09:37 Temperature Pulse Rate 103 H 116 H 123 H Respiratory Rate Blood Pressure O2 Sat by Pulse 99 99 98 Oximetry 10/18/20 10/18/20 10/18/20 09:42 09:47 09:52 Temperature Pulse Rate 102 H 115 H 100 H Respiratory Rate Blood Pressure 197/95 O2 Sat by Pulse 97 98 98 Oximetry 10/18/20 10/18/20 10/18/20 09:57 10:02 10:07 Temperature Pulse Rate 109 H 100 H 97 H Respiratory Rate Blood Pressure O2 Sat by Pulse 97 98 98 Oximetry 10/18/20 10/18/20 10/18/20 10:12 10:15 10:17 Temperature Pulse Rate 99 H 102 H 107 H Respiratory Rate Blood Pressure 178/94 O2 Sat by Pulse 99 98 Oximetry 10/18/20 10/18/20 10/18/20 10:22 10:27 10:32 Temperature Pulse Rate 120 H 125 H 124 H Respiratory Rate Blood Pressure O2 Sat by Pulse 99 99 99 Oximetry 10/18/20 10/18/20 10/18/20 10:37 10:42 10:45 Temperature Pulse Rate 128 H 110 H 104 H Respiratory Rate Blood Pressure 192/91 O2 Sat by Pulse 98 98 Oximetry 10/18/20 10/18/20 10/18/20 10:47 10:52 10:57 Temperature Pulse Rate 100 H 98 H 96 H Respiratory Rate Blood Pressure O2 Sat by Pulse 97 98 98 Oximetry 10/18/20 10/18/20 10/18/20 11:02 11:07 11:12 Temperature Pulse Rate 88 90 86 Respiratory Rate Blood Pressure 130/63 O2 Sat by Pulse 97 97 96 Oximetry 10/18/20 10/18/20 10/18/20 11:15 11:17 11:22 Temperature Pulse Rate 90 89 90 Respiratory Rate Blood Pressure 128/63 O2 Sat by Pulse 93 95 95 Oximetry 10/18/20 10/18/20 10/18/20 11:26 11:27 11:31 Temperature Pulse Rate 93 H 86 102 H Respiratory Rate Blood Pressure O2 Sat by Pulse 92 95 94 Oximetry 10/18/20 10/18/20 10/18/20 11:32 11:37 11:42 Temperature Pulse Rate 103 H 84 86 Respiratory Rate Blood Pressure O2 Sat by Pulse 97 94 95 Oximetry 10/18/20 10/18/20 10/18/20 11:44 11:46 11:47 Temperature Pulse Rate 88 93 H 89 Respiratory Rate Blood Pressure 124/63 O2 Sat by Pulse 93 95 Oximetry 10/18/20 10/18/20 10/18/20 11:52 11:57 12:02 Temperature Pulse Rate 86 88 83 Respiratory Rate Blood Pressure O2 Sat by Pulse 94 87 96 Oximetry 10/18/20 10/18/20 10/18/20 12:07 12:12 12:14 Temperature Pulse Rate 88 87 95 H Respiratory Rate Blood Pressure 130/67 O2 Sat by Pulse 93 95 94 Oximetry 10/18/20 10/18/20 10/18/20 12:17 12:22 12:23 Temperature Pulse Rate 90 92 H 92 H Respiratory Rate Blood Pressure O2 Sat by Pulse 94 95 94 Oximetry 10/18/20 10/18/20 10/18/20 12:27 12:32 12:37 Temperature Pulse Rate 98 H 94 H 90 Respiratory Rate Blood Pressure O2 Sat by Pulse 98 100 99 Oximetry 10/18/20 10/18/20 10/18/20 12:42 12:44 12:47 Temperature Pulse Rate 102 H 89 113 H Respiratory Rate Blood Pressure 118/65 O2 Sat by Pulse 99 99 Oximetry 10/18/20 10/18/20 10/18/20 12:52 12:57 13:02 Temperature Pulse Rate 119 H 110 H 131 H Respiratory Rate Blood Pressure O2 Sat by Pulse 98 97 99 Oximetry 10/18/20 13:07 Temperature Pulse Rate 128 H Respiratory Rate Blood Pressure O2 Sat by Pulse 98 Oximetry - Labs Labs: Abnormal Labs 10/15/20 10/15/20 10/15/20 19:05 20:05 20:05 RDW 15.5 H Magnesium Lactate Dehydrogenase 184 H Urine WBC (Auto) 16.0 H Urine Creatinine Ur Total Protein 24 Hr Urine Total Protein 10/15/20 10/15/20 10/16/20 21:40 21:40 00:23 RDW Magnesium Lactate Dehydrogenase Urine WBC (Auto) 14.0 H Urine Creatinine 321.4 H Ur Total Protein 24 Hr 567.00 H Urine Total Protein 75 H 63 H 10/17/20 10/18/20 10/18/20 23:20 05:22 10:49 RDW Magnesium 4.50 H 6.40 H 6.30 H Lactate Dehydrogenase Urine WBC (Auto) Urine Creatinine Ur Total Protein 24 Hr Urine Total Protein Laboratory Results - last 24 hr 10/17/20 10/18/20 10/18/20 23:20 05:22 10:49 Magnesium 4.50 H 6.40 H 6.30 H
[2020-10-18] MEDS ORDERED: LIDOCAINE (2%) 20 MG/1 ML VIAL 20 ML MDV INFILTRATI ONE (13:24)
--- NOTE | 2020-10-18 19:12 | Event Note ---
Date: 10/18/20 No cervical change Plan to proceed to OR for operative delivery Anesthesia aware FHT Category 1 Luis Wang MD
--- NOTE | 2020-10-18 19:16 | Procedure Note ---
OB Delivery Note - Delivery Date of Delivery: 10/18/20 Surgeon: RAJESH CONDE - Section Preop diagnosis: arrest of dilation Postop diagnosis: same section procedure: primary low transverse Disposition: PACU Complications: none Narrative: Preop diagnosis: IUP at term, arrest of dilatation Postop diagnosis: Same Procedure: Primary low transverse section via Pfannenstiel incision Surgeon: Dr. Rajesh Conde Anesthesia epidural Complications none EBL 700 ml IV fluids 1000mL Urine output 200 mL, clear Drains Hopper to gravity Findings: Viable male, weight 2680gms 7/8 normal uterus tubes and ovaries bilaterally Procedure: Patient was consented in taken to the operating room where she received excellent spinal anesthesia. She was then placed in the dorsal supine position with a leftward tilt. The abdomen was prepped and draped in a sterile fashion, and a timeout was verified. Adequate anesthesia was confirmed prior to the skin incision. A Pfannenstiel skin incision was made with a scalpel taken down to the underlying structures and the fascia was incised in the midline. The incision was extended laterally with curved Hammond scissors, the superior and inferior aspects of the fascial incisions were grasped with Thi clamps and the rectus muscles dissected sharply. The abdomen was entered bluntly in the midline carried down inferiorly with good visualization of the bladder. The vesicouterine peritoneum was tented with Lebanese forceps and incised in the midline with Metzenbaum scissors and the vesicouterine peritoneum taken down sharply. Bladder blade was inserted, the uterine incision was made sharply with a scalpel. The inferior and superior aspect of the uterine incisions were extended bluntly, the baby's head was delivered atraumatically. The remainder of the delivery was atraumatic, a loose nuchal cord was reduced after delivery. The cord was clamped and cut and baby handed to waiting NICU team. An intact placenta with three-vessel cord delivered manually. The uterus was then cleared of all clots and debris and the uterus exteriorized. The uterine incision was closed with 2 layers of 0 chromic with excellent hemostasis. The abdomen was then irrigated with warm normal saline and the uterus placed back into the abdomen atraumatically. A second look at the uterine incision assured hemostasis. The peritoneum was closed with 3-0 Vicryl, the rectus muscles approximated with 3-0 Vicryl, and the fascia closed with 0 Vicryl in the usual fashion. The subcuticular structures were closed with interrupted sutures of 3- 0 Vicryl and the skin closed with 4-0 Monocryl. A pressure dressing was applied. All sponge needle and instrument counts were correct x2. There were no complications. Mom to the recovery area and baby to NICU in stable condition. EBL 700 mL Luis Conde MD
--- NOTE | 2020-10-18 19:23 | Anesthesia Day of Surgery ---
Anesthesia Day of Surgery - Day of Surgery Patient Examined: Yes Patient H&P Reviewed: Yes Patient is NPO: Yes Beta Blockers: Yes Cardiac Clearance: No Pulmonary Clearance: No Edward's Test: N/A
[2020-10-18] MEDS ORDERED: LIDOCAINE MPF (2%) 20 MG/1 ML VIAL 5 ML ONE (19:29)
[2020-10-18] MEDS ORDERED: ceFAZolin/Water 2 GM/20 ML 2 GM/20 ML SYRINGE IV ONE (19:34)
[2020-10-18] MEDS ORDERED: KETAMINE/STERILE WATER 50 MG/ML SYRINGE ONE (21:17)
[2020-10-18] MEDS ORDERED: propofoL 200 MG/20 ML VIAL IV ONE (21:18)
[2020-10-18] MEDS ORDERED: ONDANSETRON 4 MG/2 ML INJ ONE (21:36)
[2020-10-18] MEDS ORDERED: KETOROLAC 30 MG/1 ML INJ IV PRN ×2 (22:08)
[2020-10-18] MEDS ORDERED: ACETAMINOPHEN 325 MG TAB PO PRN (22:08)
[2020-10-18] MEDS ORDERED: ONDANSETRON 4 MG/2 ML INJ IV PRN ×2 (22:08→22:27)
[2020-10-18] MEDS ORDERED: MAGNESIUM HYDROXIDE (MOM) ORAL LIQD UDC PO PRN (22:08)
[2020-10-18] MEDS ORDERED: SENNOSIDES 8.6 MG TAB PO PRN (22:08)
[2020-10-18] MEDS ORDERED: IBUPROFEN 600 MG TAB PO PRN (22:08)
[2020-10-18] MEDS ORDERED: IBUPROFEN 800 MG TAB PO PRN (22:08)
[2020-10-18] MEDS ORDERED: NALOXONE 0.4 MG/1 ML INJ IV PRN ×2 (22:08→22:27)
[2020-10-18] MEDS ORDERED: HYDROcodone/ACETAMINOPHEN 5-325 MG TAB PO PRN (22:08)
[2020-10-18] MEDS ORDERED: WITCH HAZEL/ GLYCERIN PAD TP PRN (22:08)
[2020-10-18] MEDS ORDERED: LANOLIN/ZINC/DIMETHICONE (LANSINOH) 7 GM TP PRN (22:08)
[2020-10-18] MEDS ORDERED: HYDROCORTISONE 25 MG RECTAL SUPP PR PRN (22:08)
[2020-10-18] MEDS ORDERED: PROMETHAZINE 25 MG RECT SUPP PR PRN (22:08)
[2020-10-18] MEDS ORDERED: HYDROmorphone 1 MG/1 ML INJ IV PRN (22:27)
--- NOTE | 2020-10-18 22:27 | Post Anesthesia Evaluation ---
- Post Anesthesia Evaluation Patient Participated: Yes Airway Patent: Yes Stable Respiratory Function: Yes Nausea/Vomiting: No Temp > 96.8F: Yes Pain Manageable: Yes Adequeate Hydration: Yes Anesthesia Complications: No Block Receding Appropriately: Yes Patient on Ventilator: No
[2020-10-19] MEDS: MORPHINE 4 MG/1 ML INJ IV PRN ×3 (00:51→12:22)
[2020-10-19] MEDS: MORPHINE 2 MG/1 ML INJ IV PRN ×2 (05:40→16:08)
--- NOTE | 2020-10-19 10:43 | Progress Note ---
Assessment and Plan A: /postop day 1 S/P primary low transverse section. Preeclampsia. Obesity. P: Mylicon for gas pain. Warm liquids. Labetalol 100 mg po BID for elevated blood pressure. Repeat magnesium level and H/H. Continue SCDs. Routine postop care. Subjective - Subjective Date of service: 10/19/20 Principal diagnosis: day 1 S/P primary low transverse section Interval history: day 1 S/P primary low transverse section. Preeclampsia. Patient reports: appetite normal, no flatus, no nauseated [place]: doing well Objective - Vital Signs Latest vital signs: Vital Signs Temp Pulse Resp BP Pulse Ox 10/19/20 10:33 98 H 98 10/19/20 10:28 104 H 98 10/19/20 10:22 98 H 148/73 91 10/19/20 10:17 100 H 97 10/19/20 10:13 103 H 99 10/19/20 10:08 102 H 98 10/19/20 10:07 172/94 10/19/20 10:03 104 H 97 10/19/20 09:58 101 H 96 10/19/20 09:53 108 H 167/86 91 10/19/20 09:47 106 H 98 10/19/20 09:43 101 H 99 10/19/20 09:37 105 H 153/71 98 10/19/20 09:33 96 H 98 10/19/20 09:27 97 H 98 10/19/20 09:22 98 H 156/82 97 10/19/20 09:17 106 H 98 10/19/20 09:12 97 H 99 10/19/20 09:07 101 H 153/91 96 10/19/20 09:02 102 H 98 10/19/20 08:57 103 H 98 10/19/20 08:53 99 H 171/93 10/19/20 08:52 104 H 99 10/19/20 08:47 100 H 98 10/19/20 08:42 99 H 96 10/19/20 08:37 101 H 144/72 97 10/19/20 08:32 107 H 97 10/19/ 08:27 100 H 98 10/19/20 08:23 96 H 140/68 10/19/20 08:22 102 H 97 10/19/20 08:17 104 H 98 06/20/21 08:12 99 H 98 20/21 08:07 100 H 148/77 97 20/21 08:02 99 H 98 20/21 07:57 101 H 98 20/21 07:52 100 H 153/78 98 20/21 07:47 100 H 98 20/21 07:45 97 H 148/88 10/19/21 07:42 98.9 F 92 H 17 97 20 07:38 106 H 173/80 2021 07:37 106 H 98 20/21 07:32 101 H 97 20/21 07:27 97 H 98 20/21 07:22 99 H 144/67 97 20 07:17 99 H 98 10/19/ 07:12 103 H 98 10/19/20 07:07 101 H 143/67 96 20/21 07:02 95 H 96 10/19/20 06:57 107 H 98 21 06:52 102 H 140/68 98 20/21 06:47 105 H 97 20/21 06:42 95 H 96 20/21 06:37 93 H 138/63 98 20/21 06:32 103 H 98 20/21 06:27 94 H 97 20/21 06:22 98 H 142/70 97 20/21 06:17 103 H 99 20/21 06:12 98 H 98 20/21 06:07 95 H 139/69 97 20/21 06:02 92 H 97 20/21 05:57 101 H 97 20/21 05:52 91 H 148/79 97 20/21 05:47 95 H 97 20/21 05:42 92 H 98 20/21 05:40 98.9 F 062021 05:38 99 H 152/90 20/21 05:37 100 H 97 20/21 05:32 97 H 96 20/21 05:27 96 H 98 20/21 05:22 99 H 149/75 98 20/21 05:17 98 H 98 20/21 05:12 94 H 99 20/21 05:07 93 H 142/71 98 0620/21 05:02 99 H 98 0620/21 04:57 97 H 97 0620/21 04:52 97 H 153/76 97 20/21 04:47 95 H 98 0620/21 04:42 96 H 97 20/21 04:37 91 H 157/77 96 0620/21 04:32 91 H 97 20/21 04:27 96 H 97 20/21 04:22 95 H 146/67 97 0620/21 04:17 99 H 98 20/21 04:12 104 H 97 20/21 04:07 97 H 150/72 98 20/21 04:02 96 H 97 2021 03:58 97 H 154/77 20/21 03:57 99 H 97 2021 03:53 96 H 163/84 20/21 03:52 95 H 98 2021 03:47 93 H 98 2021 03:42 100 H 98 20/21 03:38 103 H 182/102 20/21 03:37 106 H 98 20/21 03:32 97 H 97 20/21 03:27 92 H 98 20/21 03:22 97 H 146/86 99 20/21 03:17 94 H 97 20/21 03:12 94 H 99 20/21 03:08 90 151/91 20/21 03:07 91 H 97 20/21 03:02 93 H 97 2021 02:57 97 H 98 0620/21 02:54 90 144/62 20/21 02:52 91 H 96 20/21 02:47 92 H 98 20/21 02:42 90 98 0620/21 02:38 88 192/96 20/21 02:37 89 97 20/21 02:32 89 96 0620/21 02:27 93 H 98 20/21 02:22 92 H 136/77 98 0620/21 02:17 94 H 97 20/21 02:12 91 H 97 20/21 02:08 88 141/81 06/20/21 02:07 88 98 06/20/21 02:02 98 H 98 10/19/20 01:57 90 97 10/19/20 01:52 92 H 154/90 98 10/19/20 01:47 94 H 98 10/19/20 01:42 95 H 98 10/19/20 01:37 90 147/81 95 10/19/20 01:32 98 H 98 10/19/20 01:29 91 H 93 10/19/20 01:27 91 H 98 10/19/20 01:22 89 143/84 97 10/19/20 01:17 90 96 10/19/20 01:15 92 H 93 10/19/20 01:12 89 98 10/19/20 01:07 89 151/101 98 10/19/20 01:05 90 94 10/19/20 01:02 93 H 98 10/19/20 00:57 91 H 97 10/19/20 00:53 93 H 137/91 10/19/20 00:52 92 H 97 10/19/20 00:47 93 H 98 10/19/20 00:42 95 H 98 10/19/20 00:38 93 H 117/59 10/19/20 00:37 98 H 98 10/19/20 00:32 94 H 97 10/19/20 00:27 94 H 98 10/19/20 00:23 88 149/85 10/19/20 00:22 89 98 10/19/20 00:17 96 H 98 10/19/20 00:12 96 H 97 10/19/20 00:07 95 H 132/74 98 10/19/20 00:00 98.4 F 18 10/18/20 23:10 85 16 139/87 99 10/18/20 22:55 82 18 139/84 98 10/18/21 22:40 79 16 142/80 98 19/21 22:25 79 14 136/83 99 10/18/21 22:20 79 16 145/95 99 10/18/21 22:15 99.3 F 80 18 142/90 98 10/18/21 20:42 99 H 97 10/18/21 20:37 95 H 99 21 20:32 84 97 21 20:27 85 98 21 20:22 92 H 98 10/18/20 20:17 94 H 99 06 20:14 96 H 124/69 06 20:12 88 98 06 20:07 81 96 10/18/20 20:02 84 95 06 20:00 87 94 10/18/20 19:57 85 95 10/18/20 19:55 83 93 10/18/20 19:52 85 96 10/18/20 19:49 85 94 10/18/20 19:47 84 95 10/18/20 19:44 88 148/75 91 10/18/20 19:42 87 96 06 19:39 91 H 92 10/18/20 19:37 98 H 98 10/18/20 19:32 95 H 87 10/18/20 19:27 98 H 98 10/18/20 19:23 98 H 94 10/18/20 19:22 96 H 98 10/18/20 19:17 100 H 98 10/18/20 19:14 102 H 134/77 10/18/20 19:12 97 H 98 10/18/20 19:07 97 H 96 10/18/20 19:02 101 H 98 10/18/20 18:57 110 H 98 10/18/20 18:52 102 H 99 10/18/20 18:47 101 H 97 10/18/20 18:45 108 H 137/63 10/18/20 18:42 114 H 99 10/18/20 18:37 115 H 99 10/18/20 18:32 102 H 98 10/18/20 18:27 129 H 98 10/18/20 18:24 101 H 94 10/18/20 18:22 96 H 97 10/18/20 18:17 88 97 10/18/20 18:15 104 H 94 10/18/20 18:14 97 H 129/73 10/18/20 18:12 98 H 98 10/18/20 18:08 93 H 93 10/18/20 18:07 91 H 99 10/18/20 18:02 105 H 94 10/18/20 17:57 88 97 10/18/20 17:52 85 94 10/18/20 17:47 94 H 100 10/18/20 17:42 92 H 98 10/18/20 17:37 92 H 97 10/18/20 17:32 94 H 99 10/18/20 17:27 86 96 10/18/20 17:23 88 92 10/18/20 17:22 89 97 10/18/20 17:17 82 97 10/18/20 17:15 83 125/68 10/18/20 17:12 83 98 10/18/20 17:07 83 97 10/18/20 17:02 79 99 10/18/20 16:57 79 98 10/18/20 16:52 83 97 10/18/20 16:47 90 99 10/18/20 16:45 79 129/73 10/18/20 16:42 94 H 97 10/18/20 16:37 80 97 10/18/20 16:32 79 97 10/18/20 16:27 77 96 10/18/20 16:22 82 98 10/18/20 16:17 80 98 10/18/20 16:14 77 119/64 10/18/20 16:12 75 94 10/18/20 16:07 84 97 10/18/20 16:02 84 99 10/18/20 16:00 84 94 10/18/20 15:57 84 97 10/18/20 15:52 86 98 10/18/20 15:47 82 97 10/18/20 15:45 81 123/71 10/18/20 15:42 89 97 10/18/20 15:37 84 98 10/18/20 15:32 80 98 10/18/20 15:27 82 98 10/18/20 15:22 91 H 96 10/18/20 15:17 76 96 10/18/20 15:14 75 117/58 10/18/20 15:12 77 99 10/18/20 15:07 82 99 10/18/20 15:02 83 97 10/18/20 14:57 80 98 10/18/20 14:52 84 98 10/18/20 14:47 86 98 10/18/20 14:44 86 131/57 10/18/20 14:42 89 98 10/18/20 14:37 89 98 10/18/20 14:32 85 99 10/18/20 14:27 90 99 10/18/20 14:22 89 99 10/18/20 14:17 86 97 10/18/20 14:14 82 105/59 94 10/18/20 14:12 82 97 10/18/20 14:07 101 H 99 10/18/20 14:02 87 96 10/18/20 13:57 87 97 10/18/20 13:52 86 96 10/18/20 13:47 88 97 10/18/20 13:44 85 107/56 93 10/18/20 13:42 84 97 10/18/20 13:37 88 96 10/18/20 13:32 91 H 94 10/18/20 13:30 91 H 92 10/18/20 13:27 103 H 99 10/18/20 13:23 101 H 89 10/18/20 13:22 100 H 99 10/18/20 13:17 109 H 99 10/18/20 13:16 113 H 143/78 10/18/20 13:12 114 H 99 10/18/20 13:07 128 H 98 10/18/20 13:02 131 H 99 10/18/20 12:57 110 H 97 10/18/20 12:52 119 H 98 10/18/20 12:47 113 H 99 10/18/20 12:44 89 118/65 10/18/20 12:42 102 H 99 10/18/20 12:37 90 99 10/18/20 12:32 94 H 100 10/18/20 12:27 98 H 98 10/18/20 12:23 92 H 94 10/18/20 12:22 92 H 95 10/18/20 12:17 90 94 10/18/20 12:14 95 H 130/67 94 10/18/20 12:12 87 95 10/18/20 12:07 88 93 10/18/20 12:02 83 96 10/18/20 11:57 88 87 10/18/20 11:52 86 94 10/18/20 11:47 89 95 10/18/20 11:46 93 H 93 10/18/20 11:44 88 124/63 10/18/20 11:42 86 95 10/18/20 11:37 84 94 10/18/20 11:32 103 H 97 10/18/20 11:31 102 H 94 10/18/20 11:27 86 95 10/18/20 11:26 93 H 92 10/18/20 11:22 90 95 10/18/20 11:17 89 95 10/18/20 11:15 90 128/63 93 10/18/20 11:12 86 130/63 96 10/18/20 11:07 90 97 10/18/20 11:02 88 97 10/18/20 10:57 96 H 98 10/18/20 10:52 98 H 98 10/18/20 10:47 100 H 97 10/18/20 10:45 104 H 192/91 10/18/20 10:42 110 H 98 Intake and Output 10/18/20 10/19/20 10/19/20 23:59 07:59 15:59 Intake Total 800 Output Total 850 1100 Balance -50 -1100 Intake: IV 800 Output: Urine 850 1100 Indwelling 600 Indwelling Catheter 1100 Other: Total, Output Amount 100 - Exam Cardiovascular: Present: Regular rate Lungs: Present: Clear to auscultation Abdomen: Present: normal appearance, soft, distention (mild distention), other (hypoactive bowel sounds). Absent: guarding, rigidity Uterus: Present: normal, firm, fundal height below umbilicus. Absent: bogginess, tenderness Extremities: Present: edema. Absent: tenderness - Labs Labs: Abnormal lab results 10/18/20 10/18/20 10/18/20 Range/Units 10:49 17:32 23:46 Magnesium 6.30 H 7.60 H 7.20 H (1.7-2.3) mg/dL 10/19/20 Range/Units 06:56 Magnesium 4.70 H (1.7-2.3) mg/dL
[2020-10-19] MEDS ORDERED: MAGNESIUM SULFATE 40GM/1000ML 40 GM/1,000 ML BAG IV SCH (14:00)
[2020-10-19 14:14] LABS: Hematocrit 27.8 % (30.3-42.9); Hemoglobin 9.5 gm/dl (10.1-14.3)
[2020-10-19] MEDS: SIMETHICONE 80 MG CHEW TAB PO PRN (19:07)
[2020-10-20] MEDS: SIMETHICONE 80 MG CHEW TAB PO PRN ×2 (00:52→10:50)
[2020-10-20] MEDS: MORPHINE 4 MG/1 ML INJ IV PRN ×2 (00:52→05:30)
[2020-10-20] MEDS ORDERED: FERROUS SULFATE 325 MG TAB PO SCH (10:00)
--- NOTE | 2020-10-20 12:05 | Progress Note ---
Assessment and Plan A: POD #2 Preeclampsia Maternal Obesity Asymptomatic Anemia P: Follow Routine PostOp Orders Continue Labetolol 100mg PO BID Continue FeSO4 PO as ordered Abdominal Binder Depo Provera 150mg IM prior to discharge D/C Home today per patient request RTO in 1 Week Subjective - Subjective Date of service: 10/20/20 Principal diagnosis: day 1 S/P primary low transverse section Patient reports: appetite normal, voiding normally, pain well controlled, flatus, ambulating normally, other (Denies HAs, visual changes, epigastic pain, N&V) : doing well, bottle feeding Objective - Vital Signs Latest vital signs: Vital Signs Temp Pulse Resp BP BP Pulse Ox 10/20/20 09:07 99.3 F 95 H 18 133/72 98 10/20/20 05:30 14 10/20/20 00:52 12 10/20/20 00:00 98.6 F 90 18 125/80 10/19/20 22:22 96 H 105/56 10/19/20 22:00 99.0 F 10/19/20 21:52 99 H 151/67 10/19/20 21:47 86 121/69 10/19/20 21:22 86 121/69 10/19/20 20:52 94 H 122/61 10/19/20 20:22 88 134/66 10/19/20 19:52 92 H 124/69 10/19/20 19:23 100.2 F H 20 10/19/20 19:21 98 H 131/73 10/19/20 18:53 96 H 108/53 10/19/20 18:22 95 H 116/66 10/19/20 17:52 96 H 127/65 10/19/20 17:22 99 H 127/60 10/19/20 16:52 96 H 142/80 10/19/20 16:22 94 H 120/75 10/19/20 15:52 90 130/77 10/19/20 15:22 96 H 125/75 10/19/20 14:52 97 H 129/80 10/19/20 14:22 87 133/76 10/19/20 13:52 96 H 159/90 10/19/20 13:46 95 H 139/82 10/19/20 12:52 103 H 156/126 10/19/20 12:07 100 H 155/87 10/19/20 12:03 99 H 160/90 Intake and Output 10/19/20 10/20/20 10/20/20 22:59 06:59 14:59 Intake Total 300 Output Total 650 Balance -650 300 Intake: Intake, Free Water 300 Output: Urine 650 Indwelling Catheter 650 Other: Total, Output Amount 400 # Voids Void 1 - Exam Breasts: Present: normal Cardiovascular: Present: Regular rate Lungs: Present: Clear to auscultation, Normal air movement Abdomen: Present: normal appearance, soft, normal bowel sounds, other (edema) Uterus: Present: normal, firm, fundal height below umbilicus Extremities: Present: normal Incision: Present: normal, dry, intact - Labs Labs: Abnormal lab results 10/19/20 10/19/20 10/19/20 Range/Units 13:42 13:42 16:38 Hgb 9.5 L (10.1-14.3) gm/dl Hct 27.8 L (30.3-42.9) % Magnesium 3.70 H 4.10 H (1.7-2.3) mg/dL
[2020-10-20] MEDS ORDERED: medroxyPROGESTERone ACETATE 150 MG/ML SYRINGE IM NR (12:06)
--- NOTE | 2020-10-20 12:08 | Discharge Summary ---
Providers - Providers Date of Admission: 10/15/20 22:57 Date of discharge: 10/20/20 Attending physician: KY CLARK MD Primary care physician: KY CLARK MD Hospitalization Reason for admission: induction of labor Delivery: Procedure: primary low transverse Episiotomy: none Laceration: none Incision: normal, dry, intact Other procedures: none complications: none Discharge diagnosis: IUP at term delivered [place] baby: male Condition at discharge: Good Disposition: DC-01 TO HOME OR SELFCARE Plan - Discharge Medications Prescriptions: Ibuprofen [Motrin] 600 mg PO Q8H PRN #60 tablet PRN Reason: Pain oxyCODONE /ACETAMINOPHEN [Percocet 5/325] 1 tab PO Q6HR PRN #20 tablet PRN Reason: Pain - Provider Discharge Summary Activity: routine, no sex for 6 weeks, no heavy lifting 4 weeks, no strenuous exercise Diet: routine Instructions: routine Additional instructions: [] Smoking cessation referral if applicable(refer to patient education folder for contact #) [] Refer to [facility]'s [facility] Booklet Call your doctor immediately for: * Fever > 100.5 * Heavy vaginal bleeding ( >1 pad per hour) * Severe persistent headache * Shortness of breath * Reddened, hot, painful area to leg or breast * Drainage or odor from incision. * Keep incision clean and dry at all times and follow doctor's instructions regarding bathing/showering - Follow up plan Follow up: KY CLARK MD [Primary Care Provider] - 7 Days
[2020-10-20 21:16] VITALS: BP 125/67
== END 2020-10-20 21:15 | disposition home or self-care (01) | DRG 766 ==
LOC: TRG 17:27 → APU 17:28 → TRG 22:57 → LD 22:57 → OB 10-20 00:19
PROC: 10D00Z1 Extraction of Products of Conception, Low, Open Approach (ICD-10-PCS; principal; 2020-10-18)
PROC: 3E033VJ Introduction of Other Hormone into Peripheral Vein, Percutaneous Approach (ICD-10-PCS; 2020-10-18)
DX: O14.94 Unspecified pre-eclampsia, complicating childbirth (principal); Z3A.37 37 weeks gestation of pregnancy; Z37.0 Single live birth; Z82.49 Family history of ischemic heart disease and other diseases of the circulatory system; O75.0 Maternal distress during labor and delivery; Z83.3 Family history of diabetes mellitus; O99.214 Obesity complicating childbirth; O61.0 Failed medical induction of labor; E66.9 Obesity, unspecified; O99.02 Anemia complicating childbirth; D50.0 Iron deficiency anemia secondary to blood loss (chronic)
CPT/HCPCS: 36415; 59025; 76815; 76819; 81001; 82565; 82570; 83615; 83735; 84156; 84450; 84460; 84550; 85014; 85018; 85027; 86850; 86900; 86901; 87086; 88307; 94640; G0378; J2270; J2405; J2590; J2704; J2765; J3010; J3475; J3490; J7120; U0003